=== PATIENT | female | born 1965 | race Caucasian/White ===

== ENCOUNTER 2017-12-27 12:18 | Emergency (ER) | payer OTHER ==
[2017-12-27] MEDS ORDERED: Cyclobenzaprine 10 MG Tab PO ONE (13:47)
[2017-12-27] MEDS ORDERED: Ibuprofen 600 MG Tab PO ONE (13:48)
[2017-12-27 14:43] VITALS: BP 130/80
--- NOTE | 2017-12-29 15:15 | EDM.PDOC ---
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 She fell at work on ice. Denies loss of consciousness or vomiting. She admits to nausea. No history of previous head injury. Admits to neck pain and spasms. Onset: Today Location: Reports: Head, Neck Quality: Reports: Ache Severity: Moderate Associated Symptoms: Reports: No Other Symptoms Head Pain Score (Numeric/FACES): 5 - Related Data Allergies Allergy/AdvReac Type Severity Reaction Status Date / Time No Known Allergies Allergy Verified 12/27/17 14:43 Home Meds: Home Meds Atenolol 75 mg PO DAILY 02/14/15 [History] FLUoxetine [PROzac] 20 mg PO DAILY 02/14/15 [History] Folic Acid/Multivit-Min/Lutein [Multi-Vitamin Gummies] 2 piece PO DAILY [History] Hydrochlorothiazide/Lisinopril [Lisinopril-HCTZ 20-25 MG] 1 tab PO DAILY [History] Loratadine [Claritin] 10 mg PO DAILY 02/14/15 [History] Lysine [l-Lysine] 600 mg PO DAILY 02/14/15 [History] Past Medical History HEENT History: Reports: Allergic Rhinitis Cardiovascular History: Reports: Hypertension Psychiatric History: Reports: Depression - Past Surgical History Other Musculoskeletal Surgeries/Procedures:: arm surgery s/p fracture Social & Family History - Tobacco Use Smoking Status *Q: Never Smoker Second Hand Smoke Exposure: No - Alcohol Use Days Per Week of Alcohol Use: 0 - Recreational Drug Use Recreational Drug Use: No - Living Situation & Occupation Occupation: Employed ED ROS GENERAL - Review of Systems Review Of Systems: ROS reveals no pertinent complaints other than HPI. ED EXAM, HEAD INJURY - Physical Exam Exam: See Below Exam Limited By: No Limitations General Appearance: Alert, WD/WN, No Apparent Distress Head: Normocephalic, Scalp Tenderness (occipital) Nexus Criteria: No: Posterior, Midline Cervical Tenderness, Evidence of Intoxication, Altered Level of Consciousness, Focal Neurological Deficit, Painful Distraction Injuries Eyes: Bilateral Eye: EOMI, Normal Inspection, PERRL Ears: Normal External Exam, Normal Canal, Hearing Grossly Normal, Normal TMs, Other (no hemotympanum) Throat/Mouth: Normal Inspection, Normal Lips, Normal Teeth, Normal Gums, Normal Oropharynx, Normal Voice, No Airway Compromise Neck: Full Range of Motion, Muscle Spasm, Paraspinous Muscle Tender. 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 As Tested, No Motor/Sensory Deficits, Alert, Normal Mood/Affect, Oriented x 3 Skin: Normal Color, Warm/Dry - Twin Coma Score Best Eye Response (Alto): (4) Open Spontaneously Best Verbal Response (Alto): (5) Oriented Best Motor Response (Twin): (6) Obeys Commands Twin Total: 15 Course - Vital Signs Last Recorded V/S: Last Vital Signs Temp 36.8 C 12/27/17 13:05 Pulse 62 12/27/17 13:05 Resp 16 12/27/17 13:05 BP 130/80 12/27/17 13:05 Pulse Ox 97 12/27/17 13:05 - Orders/Labs/Meds Meds: Medications Discontinued Medications Generic Name Dose Route Start Last Admin Trade Name Pablo PRN Reason Stop Dose Admin Cyclobenzaprine HCl 10 mg 12/27/17 13:47 12/27/17 14:14 Flexeril PO 12/27/17 13:48 10 mg ONETIME ONE Administration Ibuprofen 600 mg 12/27/17 13:48 12/27/17 14:11 Motrin PO 12/27/17 13:49 600 mg ONETIME ONE Administration Departure - Departure Time of Disposition: 13:49 Disposition: Home, Self-Care 01 Condition: Good Clinical Impression: Muscle spasms of neck, Work related injury Concussion without loss of consciousness Qualifiers: Encounter type: initial encounter Qualified Code(s): S06.0X0A - Concussion without loss of consciousness, initial encounter Fall from slipping on ice Qualifiers: Encounter type: initial encounter Qualified Code(s): W00.9XXA - Unspecified fall due to ice and snow, initial encounter - Discharge Information Instructions: Concussion, Adult, [id number] Referrals: Bernie Fields MD [Primary Care Provider] - Forms: ED Department Discharge Additional Instructions: RX: Ibuprofen 600mg. RX: Cyclobenzaprine 10mg. *DO NOT DRIVE while under the influence of this medication. Light activity as tolerated. No alcohol for 2 weeks. Follow up in clinic in one week. I have read and agree with the documentation that has been completed regarding this visit. By signing this record, I attest that the documentation was completed in my physical presence and is an accurate record of the encounter.
== END 2017-12-27 14:15 | disposition home or self-care (01) ==
LOC: DL.ED 12:18
DX: S06.0X0A Concussion without loss of consciousness, initial encounter (principal); I10 Essential (primary) hypertension; F32.9 Major depressive disorder, single episode, unspecified; W00.9XXA Unspecified fall due to ice and snow, initial encounter; Y99.0 Civilian activity done for income or pay; Z79.899 Other long term (current) drug therapy
CPT/HCPCS: 99283; A9270

== ENCOUNTER 2019-12-15 03:42 | Emergency (ER) | payer BC ==
[2019-12-15 03:53] VITALS: BP 157/86; PULSE 106
[2019-12-15] MEDS ORDERED: Pantoprazole 40 MG Vial IVPUSH ONE (04:06)
--- NOTE | 2019-12-15 04:16 | EDM.PDOC ---
ED HPI GENERAL MEDICAL PROBLEM - General Chief Complaint: Abdominal Pain Stated Complaint: STOMACH PAINS Time Seen by Provider: 12/15/19 04:11 Source of Information: Reports: Patient History Limitations: Reports: No Limitations - History of Present Illness INITIAL COMMENTS - FREE TEXT/NARRATIVE: has been having RUQ pain for awhile and did see GI told was ulcers and Tx with omepraz' but took it later than usual and did eat what she shouldn't and pain been going on since midnight. 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 Right Abdomen Pain Score (Numeric/FACES): 9 - Related Data Allergies Allergy/AdvReac Type Severity Reaction Status Date / Time lorazepam [From Ativan] Allergy Edema Verified 12/15/19 03:48 Home Meds: Home Meds DULoxetine HCl [Duloxetine HCl] 20 mg PO DAILY 12/15/19 [History] Omeprazole 40 mg PO DAILY 12/15/19 [History] atenoloL [Atenolol] 50 mg PO DAILY 12/15/19 [History] lisinopriL [Lisinopril] 20 mg PO DAILY 12/15/19 [History] Past Medical History HEENT History: Reports: Allergic Rhinitis Cardiovascular History: Reports: Hypertension Gastrointestinal History: Reports: GERD, Other (See Below) Other Gastrointestinal History: gastric ulcers Psychiatric History: Reports: Depression - Past Surgical History Other Musculoskeletal Surgeries/Procedures:: arm surgery s/p fracture Social & Family History - Family History Family Medical History: Noncontributory - Tobacco Use Smoking Status *Q: Never Smoker Second Hand Smoke Exposure: No - Caffeine Use Caffeine Use: Reports: None - Recreational Drug Use Recreational Drug Use: No - Living Situation & Occupation Occupation: Employed ED ROS GENERAL - Review of Systems Review Of Systems: Comprehensive ROS is negative, except as noted in HPI. ED EXAM, GI/ABD - Physical Exam Exam: See Below Exam Limited By: No Limitations General Appearance: Alert, WD/WN, Mild Distress, Moderate Distress, Other ( discomfort). No: Active Emesis Ears: Hearing Grossly Normal Throat/Mouth: Normal Voice, No Airway Compromise Head: Atraumatic Neck: Non-Tender, Full Range of Motion Respiratory/Chest: No Respiratory Distress Cardiovascular: Regular Rate, Rhythm GI/Abdominal Exam: Tender, Other (RUQ region). No: Distended, Guarding, Rigid, Rebound Neurological: Alert, Oriented, Normal Cognition, Normal Gait, No Motor/Sensory Deficits Psychiatric: Flat Affect, Tearful Skin Exam: Warm, Dry, Normal Color Lymphatic: No Adenopathy Course - Vital Signs Last Recorded V/S: Last Vital Signs Temp 35.9 C L 12/15/19 03:49 Pulse 106 H 12/15/19 03:49 Resp 24 H 12/15/19 03:49 BP 157/86 H 12/15/19 03:49 Pulse Ox 99 12/15/19 03:49 - Orders/Labs/Meds Orders: Active Orders 24 hr Category Date Time Status Acetaminophen/HYDROcodone [Harrington 325-10 MG] Med 12/15/19 05:08 Once 1 tab PO ONETIME ONE Labs: Laboratory Tests 12/15/19 12/15/19 Range/Units 03:55 03:55 WBC 9.0 (5.0-10.0) 10^3/uL RBC 4.26 (4.2-5.4) 10^6/uL Hgb 13.8 (12.0-16.0) g/dL Hct 38.9 (37.0-47.0) % MCV 91.3 (80-100) fL MCH 32.4 (27.0-34.0) pg MCHC 35.5 H (33.0-35.0) g/dL Plt Count 242 (150-450) 10^3/uL Neut % (Auto) 81.9 H (42.2-75.2) % Lymph % (Auto) 7.9 L (20.5-50.1) % [place] % (Auto) 9.3 H (2-8) % Eos % (Auto) 0.7 L (1.0-3.0) % Baso % (Auto) 0.2 (0.0-1.0) % Sodium 130 L (136-145) mmol/L Potassium 4.0 (3.5-5.1) mmol/L Chloride 92 L (98-107) mmol/L Carbon Dioxide 22 (21-32) mmol/L Anion Gap 20.0 H (7-13) mEq/L BUN 11 (7-18) mg/dL Creatinine 0.67 (0.55-1.02) mg/dL Est Cr Clr Drug Dosing 81.25 mL/min Estimated GFR (MDRD) > 60 BUN/Creatinine Ratio 16.4 (No establ ref range) Glucose 115 H (74-99) mg/dL Calcium 8.7 (8.5-10.1) mg/dL Total Bilirubin 0.5 (0.2-1.0) mg/dL AST 39 H (15-37) U/L ALT 52 (14-59) U/L Alkaline Phosphatase 87 (46-116) U/L Total Protein 8.0 (6.4-8.2) g/dL Albumin 4.7 (3.4-5.0) g/dL Globulin 3.3 Albumin/Globulin Ratio 1.4 Amylase 59 (25-115) U/L Lipase 471 H (73-393) U/L Meds: Medications Discontinued Medications Generic Name Dose Route Start Last Admin Trade Name Freq PRN Reason Stop Dose Admin Pantoprazole Sodium 80 mg 12/15/19 04:06 12/15/19 04:12 Protonix Iv IVPUSH 12/15/19 04:07 80 mg .BOLUS ONE Administration - Re-Assessments/Exams Free Text/Narrative Re-Assessment/Exam: 12/15/19 05:08 results discussed with pt who is feeling somewhat better presently Departure - Departure Time of Disposition: 05:09 Disposition: Home, Self-Care 01 Condition: Good Clinical Impression: Abdominal pain Qualifiers: Abdominal location: right upper quadrant Qualified Code(s): R10.11 - Right upper quadrant pain - Discharge Information Forms: ED Department Discharge Additional Instructions: 1) see clinic today for GALL BLADDER ULTRASOUND Sepsis Event Note - Evaluation Sepsis Screening Result: No Definite Risk - Focused Exam Vital Signs: Vital Signs Temp Pulse Resp BP Pulse Ox 12/15/19 03:49 35.9 C L 106 H 24 H 157/86 H 99 Date Exam was Performed: 12/15/19 Time Exam was Performed: 05:08 - My Orders Last 24 Hours: My Active Orders 12/15/19 05:08 Acetaminophen/HYDROcodone [Harrington 325-10 MG] 1 tab PO ONETIME ONE - Assessment/Plan Last 24 Hours: My Active Orders 12/15/19 05:08 Acetaminophen/HYDROcodone [Harrington 325-10 MG] 1 tab PO ONETIME ONE
[2019-12-15 04:22] LABS: CHLORIDE,CL 92 mmol/L (98-107); SODIUM,NA 130 mmol/L (136-145)
[2019-12-15] MEDS ORDERED: Acetaminophen/HYDROcodone 325-10 MG Tab PO ONE (05:08)
== END 2019-12-15 05:17 | disposition home or self-care (01) ==
LOC: DL.ED 03:42
DX: R10.11 Right upper quadrant pain (principal); I10 Essential (primary) hypertension; K21.9 Gastro-esophageal reflux disease without esophagitis; Z79.899 Other long term (current) drug therapy; Z88.8 Allergy status to other drugs, medicaments and biological substances
CPT/HCPCS: 36415; 80053; 82150; 83690; 85025; 96374; 99284; A9270; C9113